=== PATIENT | male | born 1990 | race Caucasian/White ===

== ENCOUNTER 2019-08-06 01:19 | Observation (INO) | payer BC ==
[2019-08-06] VITALS (8 sets, daily range): BP systolic 123–177; BP diastolic 67–86; Ht 182.9 cm; Wt 218.5 kg
[~2019-08-06] VITALS: Ht 182.9 cm; Wt 218.5 kg
--- NOTE | ~2019-08-06 | HEMODYNAMI ---
PATIENT:MEGHAN APARICIO JR MEDICAL RECORD: [id number] : [birth year] LOCATION:[facility] D.[address] [facility]# [id number] ADMISSION DATE: 08/06/19 Generatedon:08/06/201915:42 Patient name: MEGHAN APARICIO Patient #: [id number] SSN: [id number] : 1990 Date of study: 08/06/2019 Page: Of Hemodynamic Procedure Report Patient Data Patient Demographics Procedure consent was obtained First Name: MEGHAN Gender: Male Last Name: ALESSANDRA Suffix: Patient #: [id number] : 1990 Age: 28 year(s) SSN: [id number] Race: Additional ID: [id number] Contact details [address]: [address] [place] [address] State: [place] City: [place] Zip code: [address] Admission Admission Data Admission Date: 08/06/2019 Admission Time: 3:05 Arrival Date: 08/06/2019 Arrival Time: 0:00 Admit Source: Other Insurance Payor: Private Room #: D.2125 health insurance [facility] #: [id number] Height (in.): 72 BSA: 3.1 (m2) Height (cm.): 182.88 BMI: 65.32 (kg/m2) Weight (lbs.): 481.6 Weight (kg.): 218.45 Procedure Procedure Types Cath Procedure Diagnostic Procedure C [facility] w/Coronaries Sedation Charges Moderate Sedation up to 15 minutes Procedure Description Procedure Date Procedure Date: 08/06/2019 Procedure Start Time: 15:28 Procedure End Time: 15:40 Procedure Staff Name Function Gino Cruz MD Performing Physician Simin Marlow RT Monitor Bonita Schrader RT Scrub Diana North RN Nurse Indication Chest pain Procedure Data Cath Procedure Fluoroscopy Diagnostic fluoroscopy Total fluoroscopy Time: 3 time: 3 min min Diagnostic fluoroscopy Total fluoroscopy dose: 768 dose: 768 mGy mGy Contrast Material Contrast Material Type Amount (ml) Isovue 300 85 Entry Location Entry Primary Successful Side Size Upsize Upsize Entry Closure Cash ccessful Closure Location (Fr) 1 (Fr) 2 (Fr) Remarks Device Remarks Radial Right 6 Fr Mechanical artery Short Compression Estimated blood loss: 5 ml Diagnostic catheters Device Type Used For End Catheter Placement DIAGNOSTIC Holland 110cm 5 Multi-vessel Fr catheter ([id number]) Angiography DIAGNOSTIC AR2 MOD 5 Fr Right Coronary catheter ([id number]) Angiography Procedure Complications No complications Procedure Medications Medication Administration Route Dosage Oxygen etCO2 Nasal cannula 2 l/min Lidocaine 2% added to field 20 Heparin Flush Bag added to field 2 bags (1000units/500ml NS) 0.9% NaCl I.V. 100 ml/hr Radial Cocktail I.A. 1 syringe (Verapamil 2mg/Nitro 400mcg/Heparin 1500units) Versed I.V. 1 mg Fentanyl I.V. 50 mcg Versed I.V. 1 mg Fentanyl I.V. 50 mcg Hemodynamics Rest BSA: 3.1 (m2) O2 Consumption: Estimated: 400.68 (ml/min) O2 Consumption indexed: Estimated:129.25 (ml/min/m) Heart Rate: 80 (bpm) Pressure Samples Time Site Value (mmHg) Purpose Heart Use Rate(bpm) 15:31 LV 118/18,20 Snapshot 92 Gradients Valve Time Site Site Mean SEP/DFP Peak To Heart Use 1 2 (mmHg) (sec/min) Peak Rate (mmHg) (bpm) Aortic 15:32 LV AO 85 Snapshots Pre Cath Intra NCS Post Cath Vital Signs Time Heart Resp SPO2 etCO2 NIBP (mmHg) Rhythm Pain Sedation Rate (ipm) (%) (mmHg) Status Level (bpm) 15:20:34 83 16 98 0 163/107(127) NSR 0 (11) 10(A) , No pain 15:24:50 76 11 99 38 159/108(139) NSR 0 (11) 10(A) , No pain 15:29:03 82 14 96 42.5 147/92(119) NSR 0 (11) 10(A) , No pain 15:33:17 84 19 95 44 130/87(112) NSR 0 (11) 9(A) , No pain 15:37:23 85 23 94 35.8 148/93(116) NSR 0 (11) 10(A) , No pain Medications Time Medication Route Dose Verified Delivered Reason Notes Effectiveness by by 15:25:34 Oxygen etCO2 2 l/min Gino Ortiz used for Nasal St Albaro North RN procedure cannula 15:25:40 Lidocaine 2% added 20ml Gino Christian for local to vial [facility] anesthetic field MD LANDAVERDE 15:25:46 Heparin Flush added 2 bags Gino Christian used for Bag to [facility] procedure (1000units/500ml field MD LANDAVERDE NS) 15:25:54 0.9% NaCl I.V. 100 Gino Ortiz Per ml/hr [facility] Albaro North RN physician 15:26:48 Versed I.V. 1 mg Gino Ortiz for sedation [facility] Albaro North RN, MD 15:26:55 Fentanyl I.V. 50 mcg Gino Ortiz for sedation [facility] Albaro North RN, MD 15:30:00 Radial Cocktail I.A. 1 Gino Christian for (Verapamil syringe [facility] vasodilation 2mg/Nitro MD LANDAVERDE 400mcg/Heparin 1500units) 15:30:11 Versed I.V. 1 mg Gino Ortiz for sedation [facility] Albaro North RN, MD 15:30:15 Fentanyl I.V. 50 mcg Gino Ortiz for sedation [facility] Albaro North RN, MD Procedure Log Time Note 14:46:06 Informed consent obtained and on chart 14:46:27 Diagnostic Cath Status : Urgent 14:46:50 Indication : Chest pain 14:47:06 Patient Height : 72 inches 14:47:11 Patient Weight : 481.6 lbs 14:47:17 Arrival Date: 08/06/2019 12:00:00 AM 14:47:18 Admit Source: Other 14:47:20 Insurance Payor : Private health insurance 14:47:54 ACC Patient presents with Stable Angina CCS Anginal Class 2--Slight limitation of ordinary activity. 14:47:57 Procedure Status Urgent Heart Cath (IP). 14:48:00 Time tracking: Regular hours (M-F 7:00 - 5:00) 14:48:04 Plan of Care:Hemodynamics will remain stable., Cardiac rhythm will remain stable., Comfort level will be maintained., Respiratory function will remain adequate., Patient/ family verbilizes understanding of procedure., Procedure tolerated without complication., Recovers from procedure without complications.. 14:48:07 Family unavailable. 14:48:09 Patient NPO since Midnight. 15:00:14 Diana North RN sent for patient. Start room use. 15:04:41 Risk of Mortality: 0.9 15:04:45 Risk of blood transfusion: 9.5 15:04:50 Risk of OLI: 13.8 15:05:03 3b) 30-44 Moderately reduced kidney function. 15:07:27 Patient received from Med II to CCL 1 Alert and oriented. Tansferred to table in Supine position. 15:07:28 Warm blankets applied, and donovan hugger turned on for patient comfort. 15:07:29 Correct patient and procedure confirmed by team. 15:07:30 ECG and BP/O2 sat monitors applied to patient. 15:19:20 Vital chart was started 15:19:21 Baseline sample Acquired. 15:19:35 Rhythm: sinus rhythm 15:19:38 Full Disclosure recording started 15:19:47 H&P Date Dictated: 08/06/2019 New H&P dictated by physician.. 15:19:49 Pre-procedure instructions explained to patient. 15:19:50 Pre-op teaching completed and patient verbalized understanding. 15:19:54 Is the patient allergic to Iodine/contrast media? No. 15:20:08 Was the patient premedicated? Yes 15:20:10 Is patient on blood thinner?No 15:20:12 Patient diabetic? No. 15:20:14 Previous problem with sedation/anesthesia? No ? 15:20:16 Snore? Yes 15:20:19 Sleep apnea? No 15:20:20 Deviated septum? No 15:20:23 Opens mouth fully? Yes 15:20:24 Sticks out tongue? Yes 15:20:25 Airway obstruction? No ? 15:20:29 Dentures? No ? 15:20:35 Pre procedure: right dorsailis pedis pulse 2+ Normal; easily identifiable; not easily obliterated 15:20:37 Pre procedure: left dorsailis pedis pulse 2+ Normal; easily identifiable; not easily obliterated 15:20:40 Patient pain scale 0/10 ?. 15:20:46 IV patent on arrival in left forearm with 0.9% NaCl at KVO. 15:20:50 Lab results completed and on chart. 15:20:54 Right Radial & Right Groin area was prepped with chlora-prep and draped in sterile fashion 15:20:56 Alarms reviewed by Lida Eric 15:20:56 Sharps counted by scrub and verified by R.N. 15:21:02 Physician arrived 15:21:03 --------ALL STOP TIME OUT------ 15:21:04 Final Timeout: patient, procedure, and site verified with staff and physician. All members of the team are in agreement. 15:21:06 Right Radial & Right Groin site verified by team. 15:21:10 Fire Safety Assessment: A--An alcohol-based skin anteseptic being used preoperatively., C--Open oxygen or nitrous oxide is being used., D--An ESU, laser, or fiber-optic light is being used. 15:21:13 Physical assessment completed. ASA score P 2 - A patient with mild systemic disease as per Gino Cruz MD. 15:21:18 Maximum allowable contrast dose (3.7 X eGFR X 0.75)116 ml. 15:21:22 Sedation plan: IV Moderate Sedation Medication:Versed, Fentanyl 15:21:26 Use device set Radial Dx or PCI 15:21:27 ACIST Syringe (19240) opened to sterile field. 15:21:27 Medline Cath Pack ([id number]) opened to sterile field. 15:21:28 Bag Decanter (2002) opened to sterile field. 15:21:28 ACIST Hand Control (39281) opened to sterile field. 15:21:29 ACIST Manifold (09974) opened to sterile field. 15:21:29 Tegaderm 4 x 4 (1626W) opened to sterile field. 15:21:29 MBrace Wrist Support ([id number]) opened to sterile field. 15:21:33 SHEATH 6FR RAIN (0694253) opened to sterile field. 15:21:35 EMERALD Guide Wire (155-653) opened to sterile field. 15:24:02 IV Extension Set opened to sterile field. 15:25:34 Oxygen 2 l/min etCO2 Nasal cannula was administered by Diana North RN; used for procedure; Verbal order read back and verified. 15:25:40 Lidocaine 2% 20ml vial added to field was administered by Gino Cruz MD; for local anesthetic; Verbal order read back and verified. 15:25:46 Heparin Flush Bag (1000units/500ml NS) 2 bags added to field was administered by Gino Cruz MD; used for procedure; Verbal order read back and verified. 15:25:54 0.9% NaCl 100 ml/hr I.V. was administered by Diana North RN; Per physician; Verbal order read back and verified. 15:: Left message for spouse of pt, Bernadette. No answer. 15::48 Versed 1 mg I.V. was administered by Diana North RN; for sedation; Verbal order read back and verified. 15::55 Fentanyl 50 mcg I.V. was administered by Diana North RN; for sedation; Verbal order read back and verified. 15:28:38 Procedure started. 15::44 Local anesthetic to right radial artery with Lidocaine 2% by Gino Cruz MD.INITIAL ACCESS ONLY 15:28:56 A 6 Fr Short sheath was inserted into the Right Radial artery 15:29:42 A DIAGNOSTIC Holland 110cm 5 Fr catheter (039632) was advanced over the wire and used for Multi-vessel Angiography. 15:30:00 Radial Cocktail (Verapamil 2mg/Nitro 400mcg/Heparin 1500units) 1 syringe I.A. was administered by Gino Cruz MD; for vasodilation; Verbal order read back and verified. 15:30:11 Versed 1 mg I.V. was administered by Diana North RN; for sedation; Verbal order read back and verified. 15:30:15 Fentanyl 50 mcg I.V. was administered by Diana North RN; for sedation; Verbal order read back and verified. 15:31:41 LV hemodynamics recorded. 15:31:42 LV gram done using MUNROE 15:31:46 Injector settings: Ml/sec: 5, Volume: 15, 15:31:55 EF : 55 % 15:32:47 LCA angiography performed. 15:32:58 Injector settings: Ml/sec: 3, Volume: 6, 15:34:48 Catheter removed. 15:35:24 A DIAGNOSTIC AR2 MOD 5 Fr catheter (713296V) was advanced over the wire and used for Right Coronary Angiography. 15:36:30 RCA angiography performed. 15:36:38 Injector settings: Ml/sec: 3, Volume: 6, 15:36:45 Catheter removed. 15:37:07 ZEPHYR LARGE TR BAND (281855) opened to sterile field. 15:37:46 Sheath removed intact; hemostasis achieved with Mechanical Compression to the Right Radial artery. 15:37:48 Procedure ended.(Physican Out) 15:38:38 Fluoroscopy time 03.00 minutes. 15:38:42 Fluoroscopy dose: 768 mGy 15:38:42 Flurop Dose total: 768 15:38:49 Dose Area Product 06192 mGy/cm. 15:38:54 Contrast amount:Isovue 300 85ml. 15:38:57 Maximum allowable dose exceeded? No. 15:38:59 Sharps counted by scrub and verified by R.N. 15:39:04 [place] band inflated with 10cc of air. 15:39:06 Insertion/operative site no bleeding no hematoma. 15:39:19 Post right radial artery:stable 15:39:22 Post Procedure Pulses reassessed and unchanged 15:39:26 Post procedure rhythm: unchanged. 15:39:29 Estimated blood loss: 5 ml 15:39:31 Post procedure instruction explained to patient.Patient verbalizes understanding. 15:39:31 Patient needs reinforcement of post procedure teaching. 15:39:47 Procedure type changed to Cath procedure, Diagnostic procedure, LHC, C w/Coronaries, Sedation Charges, Moderate Sedation up to 15 minutes 15:39:49 Procedure and supply charges have been captured, reviewed, submitted and are correct. 15:40:19 Procedure Complication : No complications 15:40:22 Vital chart was stopped 15:40:29 [facility] Findings: mild to moderate CAD (<70%) 15:40:31 Operative report dictated upon procedure completion. 15:40:32 See physician's report for complete and final results. 15:40:37 Report given to Med II. 15:40:44 Patient transfered to Med II with Stretcher. 15:40:46 Procedure ended. 15:40:46 Full Disclosure recording stopped 15:40:50 End room use (Document Last) 15:42:02 End room use (Document Last) 15:42:27 End room use (Document Last) Device Usage Item Name Manufacture Quantity Catalog Hospital Part Current Minima l Lot# / Number Charge Number Stock Stock Serial# Code ACIST Acist 1 83688 140498 058952 340933 20 Smoltek AB (22597Pathflow Medline Medline 1 [id number] 069018 45595 115820 5 Cath Pack ([id number]) Bag Microtek 1 348238 49601 546099 5 Decanter Medical Inc. () ACIST Hand Acist 1 92532 549277 629231 630288 5 Control Medical (46633) Systems Inc ACIST Acist 1 98518 904520 052832 481849 5 Manifold Medical (62668) Systems Inc Tegaderm 4 3M 1 1626W 239774 832215 510850 5 x 4 (1626W) MBrace Advanced 1 140-0250-00 773487 22526 332382 5 Wrist Vascular Support Dynamics ([id number]) SHEATH 6FR Cardinal 1 3424644 453228 9582900 127360 5 RAIN Health (1179849) EMERALD Cardinal 1 344-555 794084 392055 418691 5 Guide Wire Health (691-589) IV Hospira 1 00468-36 677728 82742 237040 5 Extension Set DIAGNOSTIC Terumo 1 40-9914 037141 039677 682226 5 Holland 110cm 5 Fr catheter (442733) DIAGNOSTIC Cardinal 1 [id number] 346781 218861 800252 20 AR2 MOD 5 Health Fr catheter (996323G) ZEPHYR Cardinal 1 206043 535242 2380674 177392 5 LARGE TR Health BAND (412183) Signature Audit Bell Stage Time Signature Unsigned Intra-Procedure 08/06/2019 Simin Marlow 3:42:02 PM RT(R) Intra-Procedure 08/06/2019 Diana North RN 3:42:27 PM Intra-Procedure 08/06/2019 Gino Lynch 3:42:50 PM Albaro LANDAVERDE [address] [place] [address]
[2019-08-06] MEDS ORDERED: LEVAQUIN750 MG PO (01:28)
[2019-08-06 01:40] LABS: BASOPHILS 0.4 % (0-2); EOSINOPHILS 2.5 % (0-7); HEMATOCRIT 45.9 % (42.0-54.0); HEMOGLOBIN 14.5 g/dL (13.5-17.5); IMMATURE GRANULOCYTES 0.7 % (0-5); LYMPHOCYTES 24.7 % (15-50); MCH 24.9 pg (26.0-34.0); MCHC 31.6 g/dL (31.0-37.0); MCV 78.9 fL (80.0-100.0); MEAN PLATELET VOLUME 10.7 fL (7.4-10.4); MONOCYTES 7.9 % (2-11); NEUTROPHILS 63.8 % (40-80); PLATELET COUNT 318 10x3/uL (130-400); RBC 5.82 10x6/uL (4.20-6.10); RDW 15.8 % (11.5-14.5); WBC 11.9 10x3/uL (4.8-10.8)
[2019-08-06 01:53] LABS: APTT 28.6 SECONDS (22.8-39.4); INR 0.9 (0.85-1.17); PROTIME 12.1 SECONDS (11.6-15.0)
[2019-08-06 01:56] LABS: CALC OSMOLALITY 273 mosm/kg (275-300); CALCIUM 8.7 mg/dL (8.5-10.1); CARBON DIOXIDE 28.2 mmol/L (21.0-32.0); CHLORIDE - SERUM 102 mmol/L (98-107); GLUCOSE 90 mg/dL (74-106); POTASSIUM - SERUM 4.1 mmol/L (3.5-5.1); SODIUM 136 mmol/L (136-145); UREA NITROGEN 17 mg/dL (7-18); eGFR NON AFRICAN AMERICAN 42 mL/min (90-120)
--- NOTE | 2019-08-06 02:14 | NUR ---
1ST NITRO CP RATED 7/10. WILL REASSESS IN 5 MINUTES
[2019-08-06 02:15] LABS: ALBUMIN 3.3 g/dL (3.4-5.0); ALKALINE PHOSPHATASE 116 U/L (30-120); ALT (SGPT) 29 U/L (10-68); BILIRUBIN - TOTAL 0.12 mg/dL (0.2-1.3); CKMB 1.2 U/L (0.0-3.6); CREATINE KINASE 88 UL (21-232); MAGNESIUM - SERUM 1.8 mg/dL (1.8-2.4); PROTEIN - SERUM 7.4 g/dL (6.4-8.2); TROPONIN-I < 0.017 ng/mL (0.000-0.060)
--- NOTE | 2019-08-06 02:31 | NUR ---
SECOND SL NITRO GIVEN AT THIS TIME. PT C/O CP 10/17 AT THIS TIME
--- NOTE | 2019-08-06 02:42 | NUR ---
PT C/O 7/10 CP MID CHEST, 3RD SL NITRO GIVEN AT THIS TIME.
--- NOTE | 2019-08-06 03:45 | NUR ---
ADMITED TO FROM ER TO ROOM BED LOW AND LOCKED CALL LIGHT GIVEN TO PT PT ADMITS CP ONLY A 2 NOW LCTA AND BOWEL X4
--- NOTE | 2019-08-06 04:05 | NUR ---
MONITOR SHOWS 72 SINUS RYTHM
--- NOTE | 2019-08-06 07:20 | NUR ---
RECIEVE REPORT. RESTING IN BED WITH EYES CLOSED. NO SIGNS OF DISTRESS. CONTINUE PLAN OF CARE AND SAFETY PRECAUTIONS.
[2019-08-06 09:49] LABS: THYROID STIMULATING HORMONE 4.03 uIU/mL (0.36-3.74)
[2019-08-06 11:43] LABS: CHOL - HDL RATIO 3.9 ratio (2.3-4.9); LDL-HDL RATIO 2.6 ratio (1.5-3.5)
--- NOTE | 2019-08-06 15:16 | NUR ---
TAKEN TO CANDY PACKER VIA BED.
--- NOTE | 2019-08-06 16:09 | NUR ---
ARRIVE BACK TO ROOM VIA BED FROM PACKER OPERATOR AUTOMATIC. ALERT AND ORIENTED X4. BP-117/78, HR-78 SINUS RYTHM, O2-98% RA. ZYTHROBAND TO RT RADIAL C/D/I. FREE FROM BLEEDING. FREE FROM HEMATOMA. DENIES ANY NEEDS. CONTINUE PLAN OF CARE AND SAFETY PRECAUTIONS.
--- NOTE | 2019-08-06 17:10 | HP ---
PATIENT: MEGHAN APARICIO JR MEDICAL RECORD: [id number] ACCOUNT: [id number] LOCATION:[address] : [birth year] ADMISSION DATE: 08/06/19 PCP: No PCP HISTORY AND PHYSICAL EXAMINATION DATE OF ADMISSION: 08/06/2019 CHIEF COMPLAINT: Chest pain. HISTORY OF PRESENT ILLNESS: A 28-year-old morbidly obese white male states he has been having substernal chest pain for the last 3 weeks. He does not have a primary care doctor. He went to a walk-in clinic at [facility] and with his symptoms he was directed to the [facility] tent where he was checked for coronavirus and it was negative. At some point, he was started on Levaquin and given steroids for possible respiratory infection. He had an initial appointment with a primary care provider at [facility], but when he came in and his symptoms were the same, he again was directed to the FeusdAL-19 tent and tested once again, so he has not seen a primary care provider. The patient states the pain is constant and sometimes sharp. It is accompanied with dyspnea on exertion. He denies nausea or diaphoresis. Denies radiation of his symptoms. The patient has been working at [employer] and has not been back since he has had his pains. He is admitted for observation for cardiac evaluation today. PAST MEDICAL HISTORY: He is morbidly obese. He has no primary care doctor. PAST SURGICAL HISTORY: Appendectomy in high school. CURRENT MEDICATION: Levaquin once a day. DRUG ALLERGIES: None. HABITS: He smokes daily. Denies alcohol or drugs. FAMILY HISTORY: His father is living and has some sort of heart valve problem, but he cannot remember. His mother is alive and she takes medicine for thyroid. REVIEW OF SYSTEMS: The patient states he has been obese for many years. He states he has tried to lose weight and has been unable to do so or sustain a weight loss. HEENT: No particular sinus or allergy problems. RESPIRATORY: No diagnosis of asthma or pneumonia. CARDIAC: No history of heart trouble. GASTROINTESTINAL: Denies constipation, diarrhea or heartburn. GENITOURINARY: No significant problems there. MUSCULOSKELETAL: Denies significant aches or pains. PHYSICAL EXAMINATION: VITAL SIGNS: Temperature 96.4, pulse 69, respirations 20, blood pressure 131/86, O2 sat 98%. GENERAL: He is awake and alert. He is morbidly obese. SKIN: Warm and dry. HEENT: Grossly within normal limits. NECK: Supple. HEART: Regular rate and rhythm. HISTORY AND PHYSICAL [id number] MEGHAN APARICIO JR LUNGS: Clear. ABDOMEN: Soft, obese, nontender. EXTREMITIES: No pitting edema. LABORATORY AND DIAGNOSTIC DATA: CBC with a white count 11,900, hemoglobin 14.5, hematocrit 45.9. Basic metabolic panel is unremarkable except creatinine is 2.0. There is no known baseline for creatinine for this patient. Liver functions are normal. Troponin is less than 0.017 times 2. Chest x-ray shows nothing acute. ASSESSMENT: This is a morbidly obese young white male who smokes, who presented with chest pain for 3 weeks. PLAN: Cardiac consultation. We will check thyroid function. Other tests and procedures as warranted. TRANSINT:[id number] Voice Confirmation ID: [id number] DOCUMENT ID: [id number] BALAJI QUAN MD at 1710 CC: [id number] DICTATION DATE: 08/06/1959 KAITARA TARAKA: 08/06/19 0944 ADM IN [facility] [address] [place] [address]
--- NOTE | 2019-08-06 17:13 | NUR ---
CALL 'S OFFICE REGARDING POSSIBLE DISCHARGE. AWAITING CALL BACK.
--- NOTE | 2019-08-06 18:33 | NUR ---
ALERT AND ORIENTED X4. SITTING UP IN BED. DISCHARGE INSTRUCTIONS GIVEN VERBALLY AND WRITTEN. DISCHARGE PAPERS SIGNED ON CHART. ZYTHROBAND DEFLATED. DRESSING APPLIED TO RT RADIAL. IMMOBILIZER ON. DC LT AC IV TIP INTACT. WAITING FOR RIDE TO ARRIVE. CONTINUE PLAN OF CARE AND SAFETY PRECAUTIONS.
--- NOTE | 2019-08-06 18:39 | NUR ---
RIDE ARRIVES. ESCORT TO ER ENTERANCE. REMAINS FREE FROM INJURY.
--- NOTE | 2019-08-08 07:20 | MORECARE ---
CASE MANAGEMENT DISCHARGE SUMMARY PATIENT: MEGHAN APARICIO JR UNIT: [id number] ADM DATE: 08/06/19 AGE: 28 : [birth year] SEX: M ROOM/BED: D.2125 AUTHOR: RACHEL LOBO PHYSICIAN: REFERRING PHYSICIAN: BALAJI QUAN MD DATE OF SERVICE: 08/08/19 Discharge Plan Patient Name: MEGHAN APARICIO [facility] [facility] 1990 Planned Disposition: Anticipated Discharge Date: Discharge Date: 08/06/2019 Expected LOS: 0 Initial Reviewer: [email or web address] Initial Review Date: 08/08/2019 Generated: 08/08/19 8:20 am Patient Name: MEGHAN APARICIO Page 59913 at 0720 All edits/amendments must be made on the electronic document DICTATION DATE: 08/08/19719 DELIVERY AIDE: TIMOTHY 08/08/19719 RPT#: [id number] DC DATE:08/06/19 STATUS: DIS IN [facility] [address] [place] [address] END OF REPORT
--- NOTE | 2019-08-08 14:09 | CN ---
PATIENT NAME:MEGHAN APARICIO JR MEDICAL RECORD: [id number] : [birth year] LOCATION:[facility].2125 ADMIT DATE: 08/06/19 ACCOUNT: [id number] CONSULTING PHYSICIAN: FRANKY FITZGERALD MD REFERRING PHYSICIAN: BALAJI QUAN MD DATE OF CONSULTATION: 08/06/2019 HISTORY OF PRESENT ILLNESS: Meghan Aparicio is a 28-year-old gentleman with a known history of coronary artery disease, has a strong family history of coronary artery disease, admitted with progressive chest tightness and pressure with exertion known to our service with morbid obesity, hypertension. This may progress and had rest symptomology on day of admission We are asked to see him concerning his cardiovascular status. PAST MEDICAL HISTORY: Includes: 1. History of hypertension. 2. Morbid obesity. ALLERGIES: None known. MEDICATIONS: Lisinopril 10 mg p.o. every day. SOCIAL HISTORY: Smokes about a pack a day, nondrinker. Has had difficulty with ADLs and working. REVIEW OF SYSTEMS: The patient reports easy bruising but reports no swollen glands. The patient reports no fever, no night sweats, no significant weight gain, no significant weight loss. No significant exercise tolerance. The patient reports no dry eyes, no irritation, no vision change. Patient reports no difficulty hearing and no ear pain. Patient reports no frequent nose bleeds or nose and sinus problems. Patient reports on arm pain on exertion. No shortness of breath while lying down. No history of heart murmur. Patient reports no cough, no wheezing or coughing up blood. Patient reports no abdominal pain, no vomiting. Normal appetite. No diarrhea and not vomiting blood. No nausea and no constipation. Patient reports no incontinence. No difficulty urinating. No hematuria. No increased frequency. Patient reports no muscle aches. No weakness, no arthralgias, no back pain. No swelling of the extremities. Patient reports no abnormal mole, no jaundice, no rashes. Reports no loss of consciousness. No weakness and no numbness. No seizures, dizziness, or headaches. The patient reports no depression, no sleep disturbance, feeling safe in a relationship and no alcohol abuse. Patient reports on fatigue. Reports no runny nose or sinus pressure. No itching, no hives, and no frequent sneezing. PHYSICAL EXAMINATION: GENERAL: Obese, in no acute distress. VITAL SIGNS: Blood pressure 131/86, pulse 69 and regular. HEENT: Normocephalic, atraumatic. NECK: No JVD or bruit. HEART: Distant, questionable S4 gallop. LUNGS: Diminished breath sounds. ABDOMEN: Soft, nontender. EXTREMITIES: Pulses 2+. There is 1+ edema. IMPRESSION: Acute coronary syndrome/class 3-4 angina, abnormal ECG, strong CONSULT REPORT [id number] MEGHAN APARICIO JR family history, ongoing tobacco use. We will plan for angiography, intervention based on above. TRANSINT:[id number] Voice Confirmation ID: [id number] DOCUMENT ID: [id number] FRANKY FITZGERALD MD at 1409 CC: [id number] DICTATION DATE: 08/06/19854 THIOKOL OPERATOR: 08/06/19 1242 DIS IN 08/06/19 [id number] [place] [address]
--- NOTE | 2019-08-08 14:09 | OP ---
PATIENT NAME: MEGHAN APARICIO JR MEDICAL RECORD: [id number] :[birth year] LOCATION:D.M2 D.2125 ADMISSION DATE:08/06/19 SURGEON: FRANKY FITZGERALD MD DATE OF OPERATION: 08/06/2019 PROCEDURE: Left heart catheterization, selective coronary angiography, right radial approach. CATHETERS: [place] catheter, radial sheath. The procedure was well tolerated. The patient returned to capellan. Sheath removed. Adequate hemostasis was obtained as well as TR band. FINDINGS: Left ventriculography in 30-degree MUNROE view; normal wall motion. Normal systolic function. CORONARY ANATOMY: LEFT MAIN: Left main is free of disease. LAD: LAD is free of disease in the diagonal system. CIRCUMFLEX: Free of disease in the marginal system. RIGHT CORONARY ARTERY: Dominant artery, gives rise to PDA, free of disease. IMPRESSION: Normal LV systolic function, normal coronary anatomy. TRANSINT:[id number] Voice Confirmation ID: [id number] DOCUMENT ID: [id number] FRANKY FITZGERALD MD at 1409 CC: [id number] DICTATION DATE: 08/06/19 1542 HEAD SAWYER: 08/07/19 0052 DIS IN 08/06/19 [facility] [address] [place] [address]
--- NOTE | 2019-08-08 14:09 | EC ---
PATIENT:MEGHAN APARICIO JR DATE OF SERVICE: 08/06/19 SEX: M MEDICAL RECORD: [id number] DATE OF : [birth year] LOCATION:D.M2 D.212 AGE OF PATIENT: 28 ADMISSION DATE: 08/06/19 REFERRING PHYSICIAN: INTERPRETING PHYSICIAN: FRANKY FITZGERALD MD ECHOCARDIOGRAM REPORT ECHO CHARGES 4 ECHO COMPLETE Date: 08/06/19 CLINICAL DIAGNOSIS: CHEST PAIN/CARDIOMEGALY ECHOCARDIOGRAPHIC MEASUREMENTS (adult normal given) AC root (d.<3.7cm) 4.2 cm LV Septum d (<1.2 cm> 1.5 cm Valve Excursion 1.6 cm LV Septum (systole) 1.8 cm Left Atria (s.<4.0cm> 3.8 cm LVPW d(<1.2cm) 1.6 cm RV (d.<2.3cm) 4.0 cm LVPW (sytole) 1.9 cm LV diastole(<5.6CM) 5.9 cm MV E-F(>70mm/sec) cm LV systole 4.3 cm LVOT Diameter 2.4 cm MV exc.(>10mm) 2.4 cm Est.ejection fraction (50-75%) % DOPPLER: LVIT cm/sec A 104.0cm/sec E 72.0 cm/sec LA cm/sec RVSP 25 mmHg LVOT 72 cm/sec AOP1/2T m/s Asc. Ao 104 cm/sec RVOT 75 cm/sec RA cm/sec PA 104 cm/sec AV Gradient Peak 4.35 mmHg AV Mean 2.68 mmHg AV Area 3.2 cm MV Gradient Peak 2.10 mmHg MV Mean 1.10 mmHg MV Area cm COMMENTS: Structural Engineer: 2 DEEPAK LEON [employer] Commanding Officer: 3 Dr. Evans TAPE# PACS Pericardial Effusion N DATE OF SERVICE: Adequate 2D, color flow imaging, spectral Doppler, and M-Mode. LVH is present. LV internal dimensions are normal. Wall motion is normal. EF is greater than or equal to 55%. Aortic valve is tricuspid. No evidence of stenosis by Doppler interrogation. Left atrium is normal at 3.8 cm. Mitral valve shows no prolapse. Trace MR. Right-sided chambers are grossly normal. Mild TR. ECHOCARDIOGRAM REPORT [id number] MEGHAN APARICIO JR TRANSINT:[id number] Voice Confirmation ID: [id number] DOCUMENT ID: [id number] FRANKY FITZGERALD MD at 1409 CC: [id number] DICTATION DATE: 08/06/19 1250 ABSTRACT CLERK: 08/06/19 1547 DIS IN 08/06/19 [id number] [place] [address]
== END 2019-08-06 18:40 | disposition home or self-care (01) ==
LOC: D.ER 01:19 → OBSVTIME 03:05 → D.M2 03:05
PROVIDERS: Family Medicine; Internal Medicine Interventional Cardiology; ADMIT Family Medicine; ATTEND Family Medicine
DX: I24.9 Acute ischemic heart disease, unspecified (principal); E66.01 Morbid (severe) obesity due to excess calories; F17.200 Nicotine dependence, unspecified, uncomplicated